=== PATIENT | male | born 1950 | race Caucasian/White ===

== ENCOUNTER 2016-08-26 08:32 | Emergency (ER) | payer MEDICARE, BC ==
[2016-08-26 08:47] VITALS: BP 99/61
[2016-08-26] MEDS ORDERED: ALBUTEROL SULFATE 2.5 MG/0.5 ML VIAL.NEB IH ONE ×2 (09:46→09:49)
--- NOTE | 2016-08-26 09:53 | ERNOTE ---
Time Seen by Provider: 08/26/16 09:40 Stated Complaint: SINUS INFECTION Presenting Symptoms:: cough Source: patient Exam Limitations: no limitations Immunizations: IMMUNIZATION HX Immunizations Up to Date Yes History of Influenza Vaccine Yes Allergies/Adverse Reactions: Allergies naproxen sodium [From Aleve] Adverse Reaction (Mild, Verified 08/26/16 08:47) RASH AFTER TAKING FOR 2-3 DAYS Home Medications: HOME MEDICATIONS Aspirin 325 mg PO DAILY 09/21/14 [Last Taken Unknown] Atorvastatin Calcium [Lipitor] 40 mg PO HS 09/21/14 [Last Taken Unknown] Blood Sugar Diagnostic, Drum [Accu-Chek Compact] 1 each MC DAILY 09/21/14 [Last Taken Unknown] Cyanocobalamin [Vitamin B-12] 1,000 mcg PO DAILY 09/21/14 [Last Taken Unknown] Lisinopril [Zestril] 5 mg PO DAILY 09/21/14 [Last Taken 10/04/14] Metoprolol Tartrate [Lopressor] 12.5 mg PO BID 09/21/14 [Last Taken 10/04/14] Multivitamins [Multivitamin Hany] 1 cap PO DAILY 09/21/14 [Last Taken Unknown] metFORMIN HCL [Glucophage] 500 mg PO BIDWM 09/21/14 [Last Taken Unknown] - History of Present Ilness Narrative: Patient was on a bus ride six days ago with someone coughing behind him. Two days ago he started to URI symptoms, cough mainly dry, slightly runny nose, aches. He got the influenza immunizations this season. His symptoms are slightly better today but the cough really bothers him Date (Duration): 08/24/16 Review of Systems - Review of Systems Constitutional: Present: chills, malaise. Absent: recent illness ENT: Present: nasal drainage, sore throat - with cough only. Absent: ear pain Respiratory: Present: cough. Absent: shortness of breath Cardiology: Absent: chest pain Gastrointestinal/Abdominal: Absent: nausea, vomiting, abdominal pain Musculoskeletal: Present: See HPI Skin: Absent: rash Neurological: Present: headache - slight - Patient's Past Medical History Patient History - Medical: Diabetes Type 2, Renal Disease Patient History - Cardiac/Respiratory: Coronary Heart Disease, Hypertension, Hyperlipidemia, Myocardial Infarction Patient History - Cancer: No Hx of Cancer Patient History - Surgical Procedures: Coronary Bypass Surgery, Other - Social History Smoking Status: Never smoker Have you smoked in the past 12 months: No - Immunizations Immunizations Up to Date: Yes History of Influenza Vaccine: Yes Physical Exam - Physical Exam General Appearance: Present: wd/wn, alert, no apparent distress Eye Exam: Normal inspection: bilateral, PERRL: bilateral Ears, Nose, Throat: Present: normal ENT inspection, cerumen impaction - right ear, normal pharynx Neck: Absent: lymphadenopathy (R), lymphadenopathy (L) Respiratory: Present: no respiratory distress, no accessory muscle use, lungs clear, decreased breath sounds Cardiovascular/Chest: Present: regular rate, rhythm, no murmur Neurological Exam: Present: alert, oriented, normal mood/affect Skin Exam: Present: normal color, warm/dry ED Progress - Vital Signs Patient's Vital Signs:: I have reviewed the patient's vital signs. Vital Signs: Vital Signs 08/26/16 08:44 Temperature 36.8 C Pulse Rate 92 Respiratory 14 Rate Blood Pressure 99/61 O2 Sat by Pulse 94 Oximetry - Progress/Reassessment Chief Complaint: Cough Progress Note-Subjective: 08/26/16 10:31 no significant change in symptoms with neb treat, discussed symptomatic treatment, patient will take over the counter cold medications Departure - Departure Clinical Impression: URI (upper respiratory infection) Qualifiers: URI type: unspecified viral URI Qualified Code(s): J06.9 - Acute upper respiratory infection, unspecified Disposition: Home self-care Condition: Good Instructions: Upper Respiratory Infection, Adult, [id number] Additional Instructions: use over the counter cold medication as needed if you get worse again or not better over the next few days call your doctor for follow up Referrals: Salma Dumont DO [Primary Care Provider] -
--- OUTSIDE RECORDS SUMMARY | 2016-08-26 10:01 | XMS REPORT | CCD ---
:1950 Author Name FRANK RAYMOND Address [address] [facility] Unavailable [place], [place] [id number] Care Team Providers Name Role Phone JONNIE LESTER Attending Physician Unavailable Vital Signs Vital Sign Value Unit Date/Time Recent/Initial? Weight Measured 174.16 lbs 11/21/2015 10:40 Initial VS Height 66 in 11/21/2015 10:40 Initial VS BMI (Body Mass Index) 28.11 kg/m^2 11/21/2015 10:40 Initial VS BSA (Body Surface Area) 1.92 m^2 11/21/2015 10:40 Initial VS Allergies Allergy Code Allergy Type Reaction Status ALEVE [id number] Drug allergy ITCHING Active Procedures Procedure Code Procedure Type Date Replacement of Left Lens with Synthetic Substitute, [id number] ICD-10 PCS 11/26 Percutaneous Approach History of Immunizations Unknown or Not Available. Problems Unknown or Not Available. Results Unknown or Not Available. Active Medications Unknown or Not Available. Medications Administered During Visit Unknown or Not Available. Encounters Encounter Diagnosis Diagnosis Code Start Date Age-related nuclear cataract, left eye H2512 11/27/2015 Social History Smoking Status Code Start Date End Date Never smoker [id number] Patient Decision Aids Unknown or Not Available. Discharge Instructions You were admitted to [facility] on 11/27/2015 06:14 with a principal diagnosis of Age-related nuclear cataract, left eye You had the following procedures done:Replacement of Left Lens with Synthetic Substitute, Percutaneous Approach You were discharged from [facility] on 11/27/2015 08:50 Should you have any questions prior to discharge, please contact a member of your healthcare team. If you have left the hospital and have any questions, please contact your primary care physician. Chief Complaint and Reason For Visit Unknown or Not Available. Function Status Unknown or Not Available. Plan of Care Unknown or Not Available. Referral/Transition of Care Unknown or Not Available.
--- OUTSIDE RECORDS SUMMARY | 2016-08-26 10:01 | XMS REPORT | CCD ---
:1950 Author Name FRANK RAYMOND Address [address] [facility] Unavailable [place], [place] [id number] Care Team Providers Name Role Phone JONNIE LESTER Attending Physician Unavailable Vital Signs Vital Sign Value Unit Date/Time Recent/Initial? Weight Measured 174.9 lbs 11/13/2015 14:32 Initial VS Height 66 in 11/13/2015 14:32 Initial VS BMI (Body Mass Index) 28.23 kg/m^2 11/13/2015 14:32 Initial VS BSA (Body Surface Area) 1.92 m^2 11/13/2015 14:32 Initial VS Allergies Allergy Code Allergy Type Reaction Status ALEVE [id number] Drug allergy ITCHING Active Procedures Procedure Code Procedure Type Date Replacement of Right Lens with Synthetic [id number] ICD-10 PCS 11/20/2015 Substitute, Percutaneous Approach History of Immunizations Unknown or Not Available. Problems Unknown or Not Available. Results Unknown or Not Available. Active Medications Unknown or Not Available. Medications Administered During Visit Unknown or Not Available. Encounters Encounter Diagnosis Diagnosis Code Start Date Age-related nuclear cataract, bilateral H2513 11/20/2015 Social History Smoking Status Code Start Date End Date Never smoker [id number] Patient Decision Aids Unknown or Not Available. Discharge Instructions You were admitted to [facility] on 11/20/2015 06:15 with a principal diagnosis of Age-related nuclear cataract, bilateral You had the following procedures done:Replacement of Right Lens with Synthetic Substitute, Percutaneous Approach You were discharged from [facility] on 11/20/2015 08:40 Should you have any questions prior to [...]
== END 2016-08-26 10:34 | disposition home or self-care (01) ==
LOC: ER 08:32
DX: J06.9 Acute upper respiratory infection, unspecified (principal); E11.9 Type 2 diabetes mellitus without complications; I10 Essential (primary) hypertension; E78.5 Hyperlipidemia, unspecified